=== PATIENT | male | born 2000 | race Two or more races ===

== ENCOUNTER 2024-09-17 05:24 | Emergency (ER) | payer MEDICAID, SELFPAY ==
[2024-09-17 05:25] VITALS: BMI 32.2
[2024-09-17 05:29] VITALS: BP 123/74; PULSE 59; RESP 19; TEMP 37.1; O2SAT 97
--- NOTE | 2024-09-17 05:35 | EDNOTE_ITS ---
ED Back Injury Pain RME/HPI General Chief Complaint: Back Pain/Injury Stated Complaint: BACK PAIN X 3DAYS Time Seen by Provider: 09/17/24 05:32 Arrival date/time: 09/17/24 05:24 RME / HPI RME / HPI Narrative: This section includes all my notes and documentations, including HPI, PE, and ED course. Zbigniew Johnson MD HPI: 24-year-old male here to be evaluated with low back pain. He injured it several days ago while lifting heavy objects and bending and pushing and pulling. Pain is worse with certain positions and movements and activities. No radiation into the legs. No paralysis in lower extremities. No loss of control of bladder or bowels. No anal numbness. No other complaints. ROS: All negative except as documented in HPI. Physical Exam: General: Alert and oriented. No acute distress when remaining still. Eyes: Conjunctivae and lids clear. ENT: No nasal congestion. Neck: Supple. Lungs: No respiratory distress. Abdomen: Soft and nontender. Back: Equivocal lumbar spinal tenderness. Negative straight leg raises. Skin: Warm and dry. Neuro: Alert and oriented X 3. No peripheral motor deficits. I reviewed all diagnostic test results. My interpretation of the lumbar spine x-rays is no acute fracture. At this point, diagnoses include lumbar sprain. Recommended supportive care. Based on my best medical judgment, made decision no further evaluation or treatment indicated at this time. Patient understands and agrees to the discharge instructions customized and printed, see below. Discharge Instructions from Dr. Johnson printed for you: 1. After evaluation, you sprained your low back. See attached handout. 2. Try to resume your normal activity. Prolonged inactivity is terrible for your back. 3. Apply ice or heat if helpful. 4. Ibuprofen 800 mg every 6-8 hours today and tomorrow to decrease inflammation then as needed. Lidocaine patches and cyclobenzaprine for more help with your pain. 5. See a private doctor on 09/21/2024 if not completely better. 6. Seek immediate medical care with worsening or with any concerns. Zbigniew Johnson MD Related Data Previous Rx's ?Medication ?Instructions ?Recorded ibuprofen 800 mg tablet 800 mg PO TID PRN pain #30 t abs 07/10/21 cyclobenzaprine 10 mg tablet 10 mg PO Q8H PRN muscle s pasm #30 09/17/24 tabs ibuprofen 800 mg tablet 800 mg PO Q8H PRN pain #30 t abs 09/17/24 lidocaine 5 % topical patch 2 patch topical QDAY PRN p ain #30 09/17/24 (Lidoderm) ea Allergies Allergy/AdvReac Type Severity Reaction Status Date / Time No Known Allergies Allergy Verified 07/13/21 12:18 Course Quality Measures none Orders Category Date Time Status XR lumbar spine 2-3V Stat Exams 09/17/24 05:32 Ordered Vital Signs Vital signs: Vital Signs Temperature 98.7 F 09/17/24 05:29 Pulse Rate 59 L 09/17/24 05:29 Respiratory Rate 19 09/17/24 05:29 Blood Pressure 123/74 09/17/24 05:29 Pulse Oximetry (%) 97 09/17/24 05:29 Oxygen Delivery Method Room Air 09/17/24 05:29 Back Pain / Injury Patient data External records reviewed:: [facility] previous records Clinical information provided by:: patient Social determinants that could affect healthcare access:: none Patient has the following chronic illnesses:: None How is presenting disease/condition affected by chronic disease/condition?: no chronic disease Evaluation data The following diagnostics were reviewed and interpreted by me:: EKG tracing(s) Lab and/or radiology exams considered but not ordered:: None Interpretation Summary: My interpretation of the lumbar spine x-rays is no acute fracture. Medications / Prescriptions Medications or Prescriptions considered but not ordered:: None Medication administrations:: None Consultations Consultation(s) initiated? (list below): No Diagnosis Differential diagnosis back pain/injury: lumbar radiculopathy, sciatica and strain of lumbar region Most likely diagnosis given after review of the tests above:: Low back sprain Admission Indicated Admission indicated?: not indicated Explain why admission is indicated or not indicated:: With no serious injury, there was no indication for admission. Admission Request Was there a request for admission?: No Disposition Plan Disposition Plan: Discharge Discharge Attestation Discharge Attestation: The patient and all family members were given an opportunity to ask questions and understood the discharge instructions. Discharge instructions specifically effects, indications for sooner follow up or return to the emergency department, and the expected course of current diagnosis. Patient condition: Stable Discharge Plan Plan Patient Disposition: HOME (Self Care) Prescriptions/Referrals Prescriptions/Med Rec: New cyclobenzaprine 10 mg tablet 10 mg PO Q8H PRN (Reason: muscle spasm) Qty: 30 0RF ibuprofen 800 mg tablet 800 mg PO Q8H PRN (Reason: pain) Qty: 30 0RF lidocaine [Lidoderm] 5 % adhesive patch,medicated 2 patch topical QDAY PRN (Reason: pain) Qty: 30 0RF Rx Instructions: leave on most painful area for up to 12 hrs No Action ibuprofen 800 mg tablet 800 mg PO TID PRN (Reason: pain) Qty: 30 0RF Referrals: Temporary Provider,ED [Primary Care Provider] - In 1 week Problem List Clinical Impression: Low back sprain Patient/Caregiver Discharge Instructions Discharge Activity: activity as tolerated Education Materials: ED Back Sprain/Strain Additional Instructions: Discharge Instructions from Dr. Johnson printed for you: 1. After evaluation, you sprained your low back. See attached handout. 2. Try to resume your normal activity. Prolonged inactivity is terrible for your back. 3. Apply ice or heat if helpful. 4. Ibuprofen 800 mg every 6-8 hours today and tomorrow to decrease inflammation then as needed. Lidocaine patches and cyclobenzaprine for more help with your pain. 5. See a private doctor on 09/21/2024 if not completely better. 6. Seek immediate medical care with worsening or with any concerns. Print Language: Kazakh Stand Alone Forms: Stacey Award Info., Work/School Release, Patient Portal Info Letter
== END 2024-09-17 05:49 | disposition home or self-care (01) ==
LOC: SERX 06:07
PROVIDERS: Emergency Provider Emergency Medicine
DX: S33.9XXA Sprain of unspecified parts of lumbar spine and pelvis, initial encounter (principal); X50.0XXA Overexertion from strenuous movement or load, initial encounter
CPT/HCPCS: 99283